=== PATIENT | female | born 1985 | race Caucasian/White ===

== ENCOUNTER 2023-07-14 06:39 | Emergency (ER) | payer OTHER, SELFPAY ==
[2023-07-14 06:41] VITALS: BP 132/94
--- NOTE | 2023-07-14 07:19 | ED.GENMED ---
History of Present Illness
General
Chief Complaint: Female [employer]/Gu symptoms
Source: patient
Time Seen by Provider: 07/14/23 07:06
Travel History
Have you had any contact with someone who has COVID-19?: No
Do you have any symptoms of coronavirus? Fever > 100 degrees, chills, cough, shortness of breath, sore throat, loss of taste or smell, muscle aches, or headache?: No
History of Present Illness
History of Present Illness:
37-year-old female with past medical history of heavy menstrual periods and hypothyroidism presenting to emergency department for evaluation after she started her menstrual period this Saturday, had her usual heavier bleeding but notes that throughout
her menstrual the bleeding will start to taper but that it seems to be getting heavier and she has gone through multiple pads, menstrual cups and even soaked through 2 pairs of pants prompting her to come to the ER this morning. Patient takes iron
supplementation and had been in talks with her PASTRY WRAPPER and primary care about starting oral contraceptives to try and regulate cycle and curb bleeding during menstrual periods however has yet to start this. She has no other concerns at this time
stating she feels otherwise asymptomatic and denies any pain.
Past History
Past History
ED Past Medical History: Hypothyroidism
ED Past Surgical History: None
Social History
Tobacco: Non-smoker
Alcohol: None
Drug: None
Personal:
Living: with family
Employment: Employed
Review of Systems
Review of Systems
All Other Systems: ROS reviewed and negative except as documented in HPI and ROS
Phy Exam
Physical Exam
Physical Exam:
GENERAL: Alert , in no apparent distress
EYE: clear conjunctiva b/l
HEAD: NCAT
ENT: mmm.
CARDIAC: Regular rate and rhythm .
LUNGS: no acute respiratory distress
ABDOMEN: Soft, without focal tenderness, no r/g, no cvat
Pelvic exam: Chaperoned by ED JUANY Ramachandran: Small light vaginal bleeding with 2 small clots that were removed with large Q-tips. No vaginal wall lacerations
NEUROLOGICAL: Alert and oriented
SKIN: Warm and dry, skin intact.
MUSCULOSKELETAL: well perfused.
PSYCH: Normal and appropriate interaction.
Scores
Heart Failure Risk
Heart Failure Risk Score: Not Applicable
Heart Score for Chest Pain Patients
STEMI patient?: Not applicable
Withdrawal Assessment of Alcohol
Withdrawal Assessment Completed?: Not applicable
Course
Orders/Labs/Results
Orders:
Orders
07/14/23 08:18
Type+Screen Urgent
Basic Metabolic Panel Urgent
Complete Blood Count/With Diff Urgent
PTT Urgent
Prothrombin Time Urgent
Abnormal Lab Results
07/14/23
08:18
WBC 3.1 L 10^3/uL
(4.8-10.8)
RBC 3.39 L 10^6/uL
(4.20-5.40)
Hgb 10.5 L g/dL
(12.0-16.0)
Hct 30.5 L %
(37.0-47.0)
MPV 10.5 H fL
(7.4-10.4)
Absolute Lymphs (auto) 0.9 L 10^3/uL
(1.2-3.4)
Monocytes % 12.9 H %
(1.7-9.3)
07/14/23 08:18
07/14/23 08:18
Vital Signs
Initial and Last Documented VS:
Initial Vital Signs
Temp Pulse Resp BP Pulse Ox
98.1 F 90 18 132/94 100
07/14/23 06:41 07/14/23 06:41 07/14/23 06:41 07/14/23 06:41 07/14/23 06:41
Last Documented Vital Signs
Temp Pulse Resp BP Pulse Ox
98.1 F 90 18 132/94 100
07/14/23 06:41 07/14/23 06:41 07/14/23 06:41 07/14/23 06:41 07/14/23 06:41
MDM/Problems Addressed
Differential Diagnosis Includes:
Menorrhagia, uterine fibroids, vaginal laceration (less likely given no mechanism for this), anemia
MDM/Problems Addressed:
37-year-old female presenting emergency department for evaluation of menorrhagia. She has extensive history of this. Takes iron supplementation for anemia. No signs of hemodynamic instability. Will check labs. Had discussion with patient in
regards to initiation of oral contraceptive or short-term course of Aygestin/TXA. Discussed need for close follow-up with PASTRY WRAPPER. Anticipate discharge home pending labs.
*Pulse Oximetry
Patient hypoxic: no
*Critical Care Note
Total Time (30-74mins, 75-104mins- exclusive of procedures): Not Applicable
Patient Management
Escalation/DeEscalation of care consider admission/obs:
Patient's hemoglobin 10.5. Previous in October 2022 was 11. Patient declines medications. Encouraged close follow-up with PCP and PASTRY WRAPPER. Aware of return precautions. Otherwise stable for discharge home.
ED Attending Note
-
Portions of this chart may have been created with voice recognition software.� Occasional wrong word or��sound alike� substitutions may have occurred due to the inherent limitations of voice recognition software.
Discharge Plan
Departure
Patient Disposition: Home (Routine Discharge)
Date of Disposition: 07/14/23
Time of Disposition: 08:51
Patient with high blood pressure during this ER visit?: Yes
Discharge Problem:
Menorrhagia
Instructions: Heavy Periods (DC)
Prescriptions:
No Action
MULTIPLE VITAMIN w/FE
1 tab PO DAILY
levothyroxine 100 MCG tablet
100 mcg PO DAILY@0700 0RF
docusate sodium [Colace] 100 MG capsule
200 mg PO DAILY
acetaminophen 325 MG tablet
650 mg PO Q4HPRN PRN (Reason: mild pain) 0RF
sennosides-docusate sodium 1 TABLET tablet
1 tab PO DAILYPRN PRN (Reason: constipation) 0RF
levothyroxine 100 MCG tablet
100 mcg PO DAILY AT 0700 0RF
ibuprofen 600 MG tablet
600 mg PO Q4HPRN PRN (Reason: moderate pain/cramps) 0RF
Referrals:
Robby Hagen PA [Family Provider] -
Interventions
Interventions:
*Risk Screen - Suicide Last Done: 07/14/23 06:41
*General Assessment Last Done: 07/14/23 09:04
*Neglect/Abuse Screening Last Done: 07/14/23 06:41
ED- Fall Risk Assessment Last Done: 07/14/23 07:43
*ED COVID-19 Vaccine History Last Done: 07/14/23 09:04
*Nursing Disposition Last Done: 07/14/23 09:05
ED-Female Genitourinary Assessment Last Done: 07/14/23 08:24
Discharge Date and Time
Discharge Date/Time: 07/14/23 09:05
[2023-07-14 08:24] LABS: % Eosinophils 3.2 % (0-6); % Lymphocytes 29.7 % (20.5-51.1); % Monocytes 12.9 % (1.7-9.3); % Neutrophils 53.2 % (42.2-75.2); Absolute Eosinophils 0.1 10^3/uL (0-0.7); Absolute Lymphocytes 0.9 10^3/uL (1.2-3.4); Absolute Monocytes 0.4 10^3/uL (0.1-0.6); Absolute Neutrophils 1.7 10^3/uL (1.4-6.5); Hematocrit 30.5 % (37.0-47.0); Hemoglobin 10.5 g/dL (12.0-16.0); Mean Corp Hgb Conc. 34.4 g/dL (33.0-37.0); Mean Platelet Volume 10.5 fL (7.4-10.4); Nucleated Red Blood Cells % 0 %; Platelet Count 203 10^3/uL (130-400); Red Blood Cell Count 3.39 10^6/uL (4.20-5.40); Red Cell Dist. Width 13.3 % (11.5-14.5); White Blood Cell Count 3.1 10^3/uL (4.8-10.8)
[2023-07-14 08:36] LABS: Blood Urea Nitrogen 14 mg/dl (7-17); Calcium 8.7 mg/dl (8.4-10.2); Carbon Dioxide 27 mmol/L (22-30); Chloride 105 mmol/L (98-107); Glucose 98 mg/dl (70-99); Potassium 3.8 mmol/L (3.5-5.1); Sodium 136 mmol/L (135-145); eGFR > 60.00
[2023-07-14 08:37] LABS: INR 1.06; PT 13.6 Sec (11.4-14.6)
== END 2023-07-14 09:05 | disposition home or self-care (01) ==
LOC: EMR 06:39
PROVIDERS: Physician Assistant Medical; EMERGENCY PHYSICIAN Emergency Medicine; FAMILY PHYSICIAN Nurse Practitioner Family
DX: N92.0 Excessive and frequent menstruation with regular cycle (principal); R03.0 Elevated blood-pressure reading, without diagnosis of hypertension; D64.9 Anemia, unspecified; E03.9 Hypothyroidism, unspecified
CPT/HCPCS: 99283; 80048; 85025; 85610; 85730; 86850; 86900; 86901

== ENCOUNTER → 2023-08-15 06:47 | Outpatient (REF) | payer OTHER, SELFPAY | LOC: RAD 06:47 | PROVIDERS: ATTENDING PHYSICIAN Nurse Practitioner Family | DX: N93.9 Abnormal uterine and vaginal bleeding, unspecified (principal) | CPT/HCPCS: 76830; 76856 ==

== ENCOUNTER → 2023-12-30 11:40 | Outpatient (REF) | payer OTHER, SELFPAY | LOC: WDC 11:40 | PROVIDERS: ATTENDING PHYSICIAN Nurse Practitioner Family | DX: Z12.31 Encounter for screening mammogram for malignant neoplasm of breast (principal) | CPT/HCPCS: 77063; 77067 ==

== ENCOUNTER → 2024-01-09 10:29 | Outpatient (REF) | payer OTHER, SELFPAY | LOC: WDC 10:29 | PROVIDERS: ATTENDING PHYSICIAN Nurse Practitioner Family | DX: R92.8 Other abnormal and inconclusive findings on diagnostic imaging of breast (principal) | CPT/HCPCS: 76642 ==

== ENCOUNTER → 2024-06-22 14:43 | Outpatient (REF) | payer OTHER, SELFPAY | LOC: RAD 14:43 | PROVIDERS: ATTENDING PHYSICIAN Nurse Practitioner Family | DX: R05.1 Acute cough (principal); R09.89 Other specified symptoms and signs involving the circulatory and respiratory systems; R06.2 Wheezing | CPT/HCPCS: 71046 ==

== ENCOUNTER → 2024-12-31 11:38 | Outpatient (REF) | payer OTHER, SELFPAY | LOC: WDC 11:38 | PROVIDERS: ATTENDING PHYSICIAN Nurse Practitioner Family | DX: Z12.31 Encounter for screening mammogram for malignant neoplasm of breast (principal) | CPT/HCPCS: 77063; 77067 ==